=== PATIENT | male | born 1970 | race American Indian/Alaskan Native ===

== ENCOUNTER 2018-12-01 06:35 | Day surgery (SDC) | payer OTHER ==
[2018-12-01] MEDS ORDERED: ECOTRIN PO ONE (06:58)
[2018-12-01] MEDS: NACL 0.9% 500 ML 500 ML IV SCH ×2 (07:26→09:15)
[2018-12-01 07:34] LABS: Basophils % (Auto) 0.6 % (0.0-1.8); Eosinophils # (Auto) 0.1 K/mm3 (0.0-0.4); Eosinophils % (Auto) 2.3 % (0.0-4.3); Hematocrit 43.7 % (35.5-45.6); Hemoglobin 14.7 gm/dl (11.8-15.2); Lymphocytes # (Auto) 1.7 K/mm3 (1.2-5.4); Lymphocytes % (Auto) 37.2 % (13.4-35.0); Mean Corpuscular HGB Conc 34 % (32-34); Mean Corpuscular Volume 88 fl (84-94); Monocytes # (Auto) 0.4 K/mm3 (0.0-0.8); Monocytes % (Auto) 9.8 % (0.0-7.3); Platelet Count 156 K/mm3 (140-440); Red Blood Count 4.95 M/mm3 (3.65-5.03); Red Cell Distribution Width 14.1 % (13.2-15.2)
[2018-12-01 07:44] LABS: INR 0.98 (0.87-1.13)
[2018-12-01 07:56] LABS: BUN/Creatinine Ratio 14; Blood Urea Nitrogen 13 mg/dL (9-20); Hemolysis Index 7
[2018-12-01] MEDS ORDERED: HEPARIN/NS 5000 UNIT/500ML(CATH LAB) 1,000 ML IR ONE (08:09)
[2018-12-01] MEDS ORDERED: NITROGLYCERIN SYRINGE 0 ML ONE (08:10)
[2018-12-01] MEDS: VERSED ONE ×3 (09:14→09:40)
[2018-12-01] MEDS: SUBLIMAZE ONE ×3 (09:14→09:40)
[2018-12-01] MEDS: XYLOCAINE 2% INFILTRATI ONE ×2 (09:14→09:34)
[2018-12-01] MEDS: CALAN ONE ×2 (09:34→09:37)
[2018-12-01] MEDS: HEPARIN 10,000 UNITS/10 ML ONE ×2 (09:35→09:37)
--- NOTE | 2018-12-01 10:35 | Cardiac Catherization Report ---
CARDIAC CATHETERIZATION REPORT INDICATION FOR PROCEDURE: The patient is a 48-year-old gentleman with history of atypical chest pains and mildly abnormal stress test. He is scheduled for cardiac catheterization for definitive diagnosis and treatment because of complaints of shortness of breath and frequent PVCs and nonsustained VT noted on the stress test. The patient is aware of the procedure, potential complications and alternatives of therapy available. DESCRIPTION OF PROCEDURE: The patient was brought to the catheterization laboratory in a fasting condition. The right wrist area and forearm thoroughly cleansed with chlorhexidine solution. Sterile drapes were applied. The patient was evaluated for moderate sedation and he was felt to be appropriate candidate and received IV Versed and fentanyl. Subsequently, local anesthesia was given in the right wrist area. Right radial artery puncture was made using 21-gauge arterial puncture needle. Subsequently, 5-Qatari slender sheath was introduced. Initially 6-Qatari multipurpose catheter was used to obtain the angiograms of the left ventricle done in MESA projection using hand injection. However, the patient is having significant pain on moving the catheter. Hence, 6-Qatari catheter was changed to 5-Qatari TIG catheter for angiograms of the left coronary artery and 5-Qatari JR4 catheter for obtaining the angiograms of the right coronary artery. After obtaining the angiograms in multiple views catheter and sheath were removed. Good hemostasis was achieved. The patient was monitored throughout the procedure for his moderate sedation with EKG monitoring, pulse oximetry monitoring and hemodynamic monitoring. The patient tolerated the procedure well. At the end of the procedure, the patient is communicating normally and breathing normally and able to move all the extremities. The patient was transferred to the room in stable condition. Radial band will be applied to achieve hemostasis in the right radial artery. His moderate sedation started at 9:28 a.m. and monitoring ended at 9:51 a.m. No untoward complications were noted. Following findings were noted. HEMODYNAMICS: 1. Opening aortic pressure 133/78, left ventricular pressure 131/22. No gradient across the aortic valve. Estimated ejection fraction 65%. 2. Left ventriculogram done in MESA projection showed normal sized left ventricle with normal contractility. End-diastolic and systolic volumes are normal. Only limited amount of dye injected. Mitral regurgitation could not be evaluated. 3. Right coronary artery arises normally from right coronary cusp. Dominant vessel and angiographically smooth and normal. 4. Left coronary artery arises normally from left coronary cusp. Left main, LAD which curves around the apex and its branches and circumflex artery and its branch are angiographically smooth and normal. FINAL IMPRESSION: 1. Normal sized left ventricle with normal contractility. End-diastolic pressure is mildly elevated. 2. Essentially normal coronary anatomy angiographically. 3. At this time, the patient does not have any significant coronary artery disease angiographically. Would continue risk factor modification. The patient tolerated the procedure well. No untoward complications were noted. The patient was stable throughout the procedure. [facility]# [id number] MO/LUCIO
--- NOTE | 2018-12-01 13:58 | Short Stay Summary ---
Short Stay Documentation Date of service: 12/01/18 - History H&P: obtained from office - Allergies and Medications Current Medications: Allergies No Known Allergies Allergy (Verified 12/01/18 07:29) Home Medications Medication Instructions Recorded Confirmed Last Taken Type No Known Home Medications [No 12/01/18 12/01/18 Unknown History Reported Home Medications] Active Medications Sodium Chloride (Nacl 0.9% 500 Ml) 500 mls @ 50 mls/hr IV DIRECT CLARISA Stop: 12/01/18 16:59 Last Admin: 12/01/18 09:15 Dose: 50 mls/hr Documented by: - Brief post op/procedure progress note Date of procedure: 12/01/18 Pre-op diagnosis: abnormal stress test Post-op diagnosis: other (normal coronaries) Procedure: LHC - see dictated cath report Anesthesia: local Estimated blood loss: none Condition: stable - Disposition Condition at discharge: Good Disposition: [id number] TO HOME OR SELFCARE - Discharge Diagnoses (1) Normal coronary arteries Status: Chronic (2) NSVT (nonsustained ventricular tachycardia) Status: Chronic Short Stay Discharge Plan Activity: advance as tolerated Wound: open to air, keep clean and dry, per your surgeon's advice Follow up with: ISIDRO KHAN MD [Primary Care Provider] - 7 Days Forms: CardCath PCI D/C Instructions
[2018-12-01 14:35] VITALS: BP 137/68
== END 2018-12-01 14:30 | disposition home or self-care (01) ==
LOC: CATHLABREC 06:35
PROVIDERS: ATTEND Internal Medicine
DX: R07.89 Other chest pain (principal); R94.39 Abnormal result of other cardiovascular function study; I47.2 Ventricular tachycardia; E78.00 Pure hypercholesterolemia, unspecified; Z83.3 Family history of diabetes mellitus; Z79.899 Other long term (current) drug therapy
CPT/HCPCS: 36415; 80048; 85025; 85610; 93005; 93010; 93458; 99156; 99157; C1894; J1644; J2250; J3010; J7040; Q9967